=== PATIENT | female | born 1980 | race Caucasian/White ===

== ENCOUNTER 2019-05-06 11:34 | Inpatient (IN) | payer OTHER ==
[~2019-05-06] VITALS: Ht 157.5 cm; Wt 70.8 kg
[2019-05-20] MEDS ORDERED: OBSTETRIX ONE1 EACH PO (07:58)
== END 2019-05-21 12:05 | disposition home or self-care (01) | DRG 807 ==
LOC: SURG-SUITE 05-19 17:16 → LDR 05-19 17:16 → SURG-SUITE 05-19 21:11 → OB/GYN 06-01 14:45
PROVIDERS: ADMIT Obstetrics & Gynecology Maternal & Fetal Medicine
PROC: 10E0XZZ Delivery of Products of Conception, External Approach (ICD-10-PCS; principal; 2019-05-19)
PROC: 0KQM0ZZ Repair Perineum Muscle, Open Approach (ICD-10-PCS; 2019-05-19)
PROC: 4A1HXCZ Monitoring of Products of Conception, Cardiac Rate, External Approach (ICD-10-PCS; 2019-05-19)
DX: O70.1 Second degree perineal laceration during delivery (principal); Z37.0 Single live birth; Z3A.38 38 weeks gestation of pregnancy